=== PATIENT | female | born 1960 | race Caucasian/White ===

== ENCOUNTER → 2016-10-02 | Outpatient (CLI) | payer OTHER ==
[~2016-10-02] MED LIST: ALPRAZOLAM0.25 MG PO; AMITIZA24 MCG PO; CARDIZEM30 MG PO; COMBIVENT U/D3 M1 INH; COREG3.125 MG PO; CREON DR 24,001 EACH PO; FISH OIL 1,0001 CA2 PO; FLAX SEED OIL1000 M1 PO; PANTOPRAZOLE SO40 MG; PRILOSEC40 MG PO; PROTONIX; RASPBERRY KETONES PO; SYMBICORT INH; TYLENOL #3
--- NOTE | ~2016-10-02 | CT138 ---
[facility] A Service of [facility] RADIOLOGY TEXT RESULTS PATIENT: KAREN MOORE LOCATION: [facility] : 62 UNIT #: [id number] AGE: [address]: Maricruz Garcia MD SEX: F ORDER DR: [id number] [place] [id number] O MR#: [id number] Acc #: [id number] NAME: KAREN MOORE : 1960 SEX: F STUDY DATE/TIME: 10/02/2016 17:06 UNIT: [facility] ROOM: STUDY DESCRIPTION: CT Lung screening initial Attending Physician: Maricruz Garcia M.D. Ordering Physician: Maricruz Garcia M.D. Primary Care Physician: Maricruz Garcia M.D. MEDICAL IMAGING REPORT This report is preliminary unless electronic signature is present. EXAM CT lung cancer screening. INDICATION Lung cancer screening. 40 pack year smoking history. PROCEDURE Unenhanced low-dose CT of the chest performed per lung cancer screening protocol. CTDI 0.3 mGy. Total DLP, 15.[address] exam was performed with one or more of the following radiation dose reduction techniques: automatic exposure control, adjustment of mA and/or kV according to patient size, and iterative reconstruction. COMPARISON 03/05/2010 FINDINGS Mild upper lobe centrilobular emphysema. No suspicious pulmonary nodule. No adenopathy. Chronic calcific pancreatitis in the tail of the pancreas. No acute findings in the included upper abdomen. No aggressive appearing bone lesion. IMPRESSION 1. No suspicious pulmonary nodule. Lung-RADS category 1 negative. Per the ACR Lung-RADS recommendation suggest patient continue with annual low-dose lung cancer screening. 2. Changes of chronic calcific pancreatitis in the tail of the pancreas. This suggests an underlying stricture at the junction of the body and tail. [facility] A Service of [facility] RADIOLOGY TEXT RESULTS PATIENT: KAREN MOORE LOCATION: [facility] : 62 UNIT #: [id number] AGE: [address]: Maricruz Garcia MD SEX: F ORDER DR: Dictated by... Leighton Harrell M.D. THIS IS AN ELECTRONICALLY VERIFIED REPORT Leighton Harrell M.D. at 10/07/2016 2:28 PM ELLEN/joann TD: 10/05/2016 15:20 JOB #: [id number] MEDICAL IMAGING REPORT Page 1 of 1
== END | disposition home or self-care (01) ==
LOC: SCT 16:58
DX: F17.210 Nicotine dependence, cigarettes, uncomplicated (principal)
CPT/HCPCS: G0297